=== PATIENT | female | born 1960 | race Caucasian/White ===

== ENCOUNTER 2017-07-08 15:14 | Emergency (ER) | payer BC ==
--- NOTE | 2017-07-08 15:18 | ER Report ---
History and Physical Time Seen By MD: 15:18 HPI/ROS cc: SHORTNESS of breath HPI: 57 yo smoker with copd and recurrent bronchitis presents with dyspnea, hypoxia and tachycardia referred from urgent care (Dr. Reg Desai) for elevated d-dimer and abnormal vitals . Pt denies prior blood clots. Lonstanding history of smoking, she denies any long plane/train or car rides. Denies recent trauma or surgery. Denies leg pain or swelling. Denies estrogen replacement therapy. She does endorse congestion, rhinorrhea and cough; she says it feels similart to the bronchitis she gets every year. Allergies: Coded Allergies: codeine (Verified Allergy, Severe, 07/08/17) Home Meds Reported Medications Guaifenesin (MUCINEX) 600 Mg Tablet.er, 600 MG PO QDAY 07/08/17 Simvastatin (SIMVASTATIN) 20 Mg Tablet, 20 MG PO HS, TAB 07/08/17 Metformin Hcl (METFORMIN HCL) 1,000 Mg Tablet, 1 TAB PO QDAY, TAB 07/08/17 Lisinopril (LISINOPRIL) 20 Mg Tablet, 20 MG PO QDAY, TAB 07/08/17 Duloxetine HCl (Duloxetine HCl) 60 Mg Capsule.dr, 60 MG PO QDAY 07/08/17 Constitutional Vital Sign - Last 24 Hours 07/08/17 07/08/17 07/08/17 07/08/17 15:14 15:18 15:20 15:29 Temp 98.6 Pulse ??? 110 107 Resp 24 B/P (MAP) 140/72 (94) 140/72 Pulse Ox 94 93 O2 Delivery Nasal Cannula 07/08/17 15:30 B/P (MAP) 132/76 (94) Physical Exam General Appearance: The patient is alert, has no immediate need for airway protection and no signs of toxicity. No acute distress Eyes: Pupils equal and round no pallor or injection. ENT, Mouth: Mucous membranes are moist. Copious nasal discharge and congestion Respiratory: There are no retractions, lungs are clear to auscultation. Cardiovascular: Regular rate and rhythm. No murmurs gallops or rubs Gastrointestinal: Abdomen is soft and non tender, no masses, bowel sounds normal. Neurological: Normal Skin: Warm and dry, no rashes. Musculoskeletal: Neck is supple non tender. Extremities are nontender, nonswollen and have full range of motion. no edema, neg for calf pain and tenderness; neg Sunshine's sign bilaterally. DIFFERENTIAL DIAGNOSIS: After history and physical exam differential diagnosis was considered for a cold, cough, bronchitis, pneumonia, atelectasis, pulmonary embolus Medical Decision Making Data Points Laboratory Hematology Test 07/08/17 00:00 Troponin I < 0.012 ng/ml Chemistry Test 07/08/17 00:00 Troponin I < 0.012 ng/ml EKG/Imaging EKG Interpretation Sinus tachycardia rate of 103 normal ND QRS and QTc intervals no ST or T-wave changes to suggest ischemia or infarction ED Course/Re-evaluation ED Course CT negative for pulmonary embolus prominent hilar adenopathy consistent with bronchial process such as bronchitis. Likely viral in etiology however patient would like to have antibiotics prescription to hold just in case. She prefers doxycycline to azithromycin at this time. I'm fine with this choice. I explained to her that viral etiology is more likely. Home medications follow-up reasons to return were all discussed as well as supportive care at home. All questions answered and understood. She states she has plenty of inhalers at home and does not need another one this time. Decision to Disposition Date: Jul 08, 2017 Decision to Disposition Time: 16:53 Depart Departure Latest Vital Signs Vital Signs Date Time Temp Pulse Resp B/P (MAP) Pulse Ox O2 Delivery O2 Flow Rate FiO2 07/08/17 15:30 132/76 (94) 07/08/17 15:29 107 93 07/08/17 15:20 98.6 24 Nasal Cannula Impression: Primary Impression: Bronchitis Condition: Improved Disposition: HOME OR SELF-CARE New Scripts Doxycycline Hyclate (DOXYCYCLINE HYCLATE) 100 Mg Tablet.dr 100 MG PO BID for 7 Days, #14 CAP Prov: CARIN CORTEZ MD 07/08/17 Prednisone (PREDNISONE) 20 Mg Tablet 40 MG PO DAILY Y for ANXIETY for 5 Days, #10 TAB Prov: CARIN CORTEZ MD 07/08/17 Benzonatate 100 Mg Cap (TESSALON PERLE 100 MG CAP) 100 Mg Capsule 100 MG PO TID, #15 CAP Prov: CARIN CORTEZ MD 07/08/17 Patient Instructions: Acute Bronchitis (ED) CARIN CORTEZ MD Jul 08, 2017 15:18
[2017-07-08] MEDS ORDERED: NS(*) 0.9% 1000 ML BAG 1,000 ML IV ONE (15:20)
[2017-07-08] MEDS ORDERED: SIMV-49 PO (15:35)
[2017-07-08] MEDS ORDERED: LISI20TA29 PO (15:35)
[2017-07-08] MEDS ORDERED: DULO60CA7 PO (15:35)
[2017-07-08] MEDS ORDERED: GUAI600T57 PO (15:35)
[2017-07-08] MEDS ORDERED: METF-420 PO (15:35)
[2017-07-08] MEDS ORDERED: IOPAMIDOL 76% 75 ML INFUS BTL 75 ML ONE (15:45)
--- NOTE | 2017-07-08 16:22 | EKG ---
FACILITY: [facility] [place] PATIENT NAME: SYEDA CHAPMAN : [id number] MR: [id number] V: [id number] EXAM DATE: ORDERING PHYSICIAN: CARIN CORTEZ TECHNOLOGIST: NIKITA Kilgore Reason : SOB Blood Pressure : / mmHG Vent. Rate : 103 BPM Atrial Rate : 103 BPM P-R Int : 174 ms QRS Dur : 092 ms QT Int : 362 ms P-R-T Axes : 062 083 062 degrees QTc Int : 474 ms Sinus tachycardia Otherwise normal ECG No previous ECGs available Confirmed by FARIHA CHINCHILLA ([id number]) on 07/09/2017 7:30:45 AM Referred By: DANA Confirmed By:FARIHA CHINCHILLA
--- NOTE | 2017-07-08 16:37 | RADIOLOGY IMAGING REPORT ---
FACILITY: [facility] PATIENT NAME: Ginger Mayorga : 1960 MR: [id number] V: [id number] EXAM DATE: ORDERING PHYSICIAN: CARIN CORTEZ TECHNOLOGIST: Location: [facility] [place] Patient: Ginger Mayorga : 1960 Visit/Account:[id number] Date of Sevice: 07/08/2017 CT ANGIOGRAM OF THE CHEST WITH INTRAVENOUS CONTRAST, PE PROTOCOL DATE OF EXAM: 07/08/2017 15:19 COMPARISON: Outside imaging of July 19, 2012 would not load for comparison.. INDICATION: Shortness of breath and elevated d-dimer. TECHNIQUE: Contrast enhanced chest CT performed during the injection of 75 ml of Isovue-370. Three-d imensional (MIP) reconstructions were performed. FINDINGS: There is no pulmonary arterial filling defect. The heterogeneity within the central pulmonary arterie s is likely artifactual. Thyroid: Not diagnostically imaged. Thoracic inlet: The thoracic inlet adenopathy. Heart and great vessels: Heart size is normal. Moderate aortic arch atherosclerosis. Mediastinum and chelsea: Nonspecific hilar adenopathy is most notable on the right where there is a pro minent 3.4 cm soft tissue conglomerate. There are also several prominent mediastinal lymph nodes. Lungs and pleura: Predominantly subpleural emphysematous change is most notable at the lung apices. No effusion, consolidation, or pneumothorax. Mild dependent atelectasis at the lung bases. Mild bronc hial wall thickening. Breast and axilla: Unremarkable by CT but incompletely imaged. Bones and soft tissues: No acute osseous abnormality. Upper abdomen: Unremarkable. IMPRESSION: 1. Negative for pulmonary arterial embolus. 2. Nonspecific hilar and mediastinal adenopathy. One of the following dose optimization techniques was utilized in the performance of this exam: Autom ated exposure control; adjustment of the mA and/or kV according to the patient's size; or use of an i terative reconstruction technique. Specific details can be referenced in the facility's radiology C T exam operational policy. Report Dictated By: Aung West MD at 07/08/2017 4:16 PM Report E-Signed By: Aung West MD at 07/08/2017 4:32 PM [id number]
[2017-07-08 16:55] VITALS: BP 132/74
[2017-07-08] MEDS ORDERED: DOXY-228 PO (16:56)
[2017-07-08] MEDS ORDERED: BENZ100C4 PO (16:56)
[2017-07-08] MEDS ORDERED: PRED20TA6 PO (16:56)
== END 2017-07-08 17:12 | disposition home or self-care (01) ==
LOC: ER 15:19
DX: J40 Bronchitis, not specified as acute or chronic (principal)
CPT/HCPCS: 71275; 84484; 93005; 96360; 99284; J7030; Q9967

== ENCOUNTER → 2017-07-08 | Outpatient (REF) | payer BC ==
[~2017-07-08] MED LIST: BENZ100C4 PO; DOXY-228 PO; DULO60CA7 PO; GUAI600T57 PO; LISI20TA29 PO; METF-420 PO; PRED20TA6 PO; SIMV-49 PO
[2017-07-08 14:08] LABS: PLATELET COUNT, AUTOMATED 259 K/uL (150-450)
== END ==
PROVIDERS: ATTEND Family Medicine
DX: J44.1 Chronic obstructive pulmonary disease with (acute) exacerbation (principal)
CPT/HCPCS: 82040; 82247; 82310; 82374; 82435; 82565; 82947; 84075; 84132; 84155; 84295; 84450; 84460; 84520; 85025; 85379